=== PATIENT | female | born 1985 | race Hispanic/Latino ===

== ENCOUNTER 2018-10-13 04:25 | Emergency (ER) | payer SELFPAY ==
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
[2018-10-13 08:17] LABS: Urine Blood 3+ (NEG); Urine Glucose NEGATIVE (NEG); Urine Protein NEGATIVE (NEG)
--- NOTE | 2018-10-13 09:32 | RAD REPORT ---
EXAM DESCRIPTION: RAD - Femur Left - 10/13/2018 6:22 am CLINICAL HISTORY: Left leg pain FINDINGS: No fracture is seen
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
== END 2018-10-13 06:34 | disposition home or self-care (01) ==
LOC: ER 04:25
DX: S00.93XA Contusion of unspecified part of head, initial encounter (principal); S80.12XA Contusion of left lower leg, initial encounter; V49.00XA Driver injured in collision with unspecified motor vehicles in nontraffic accident, initial encounter; Y93.9 Activity, unspecified; Y92.410 Unspecified street and highway as the place of occurrence of the external cause
CPT/HCPCS: 70450; 72125; 81003; 81025